=== PATIENT | female | born 1950 | race Two or more races ===

== ENCOUNTER 2016-05-10 10:13 | Emergency (ER) | payer MEDICARE ==
[2016-05-10] MEDS ORDERED: SODIUM CHLORIDE 0.9% 1,000 ML ONE (12:26)
[2016-05-10] MEDS ORDERED: ONDANSETRON 4 MG ODT TAB ONE (12:27)
[2016-05-10] MEDS ORDERED: HYDROCODONE/ACETAMINOPHEN 5/325MG TABLET ONE (12:27)
[2016-05-10 12:29] LABS: ABSOLUTE NEUTROPHIL COUNT 3.4 K/mm3 (1.8-7.7); BASO % 0.5 % (0.2-1.0); EOS # 0.1 (0.0-0.5); EOS % 1.8 % (0.9-2.9); HEMATOCRIT 30.2 % (37.0-47.0); HEMOGLOBIN 9.1 gm/l (12.0-16.0); IMM NEUT% 0.5 % (0-1); LYMPH # 1.7 (1.0-4.8); LYMPH % 29.8 % (15-45); MEAN CELL VOLUME 81.4 fl (81.0-99.0); MEAN CORPUSCULAR HEMOGLOBIN 24.5 pg (27.0-31.0); MEAN CORPUSCULAR HGB CONC 30.1 g/dl (33.0-37.0); MEAN PLATELET VOLUME 9.2 fl (7.4-10.4); MONO # 0.4 (0.0-0.8); MONO % 7.4 % (4-12); PLATELET COUNT 225 K/mm3 (130-400); RED CELL DISTRIBUTION WIDTH 18.8 % (11.5-14.5)
[2016-05-10 13:02] LABS: ALB/GLOB RATIO 1.3 (>1.0); ALBUMIN 3.1 gm/dL (3.5-5.7); CALCIUM 8.1 mg/dL (8.6-10.3)
--- NOTE | 2016-05-10 13:34 | RAD ---
LUMBAR SPINE ROUTINE 2 3 VWS HISTORY: Fall with back pain and hip pain. COMPARISONS: 08/01/2015. FINDINGS: AP and lateral views of the lumbar spine were performed demonstrating 5 lumbar-type vertebral bodies. The vertebral body height and alignment is grossly intact. Mild multilevel lumbar degenerative changes are present, similar to the appearance on prior exam. Posterior facet hypertrophy is also identified, particularly evident at L5-S1. The posterior elements are otherwise intact. Atherosclerotic calcification of the aorta is noted. IMPRESSION: 1. Multilevel lumbar degenerative changes with a similar appearance to that seen on prior examination. No significant compression deformity is visualized. 2. Posterior facet hypertrophy, particularly evident at L5-S1.
--- NOTE | 2016-05-10 13:35 | RAD ---
PELVIS W BILATL HIPS 3-5 VIEWS HISTORY: Fall with pain. COMPARISONS: None. FINDINGS: An AP view of the pelvis was performed with AP and frog-leg lateral views of both hips demonstrating intact osseous structures. The hip joint spaces are symmetric and are well-maintained. The osseous pelvis is appropriate. No focal soft tissue abnormalities are seen. IMPRESSION: 1. Negative views of the pelvis and bilateral hips.
[2016-05-10 15:33] LABS: SPECIFIC GRAVITY 1.015 (1.001-1.030); URINE BILIRUBIN NEGATIVE (NEGATIVE); URINE BLOOD TRACE (NEGATIVE); URINE GLUCOSE (UA) TRACE (NEGATIVE); URINE LEUKOCYTE ESTERASE NEGATIVE (NEGATIVE); URINE NITRITE NEGATIVE (NEGATIVE); URINE PROTEIN NEGATIVE (NEGATIVE); URINE UROBILINOGEN NORMAL (0-1 mg/dl)
[2016-05-10 15:36] LABS: URINE APPEARANCE CLEAR; URINE COLOR YELLOW
[2016-05-10 15:40] LABS: URINE BACTERIA RARE; URINE RBC 0-2 /hpf
== END 2016-05-10 16:04 | disposition home or self-care (01) ==
LOC: ED 10:13
DX: M53.3 Sacrococcygeal disorders, not elsewhere classified (principal); I10 Essential (primary) hypertension; F17.210 Nicotine dependence, cigarettes, uncomplicated; F03.90 Unspecified dementia, unspecified severity, without behavioral disturbance, psychotic disturbance, mood disturbance, and anxiety; Z86.73 Personal history of transient ischemic attack (TIA), and cerebral infarction without residual deficits; W07.XXXA Fall from chair, initial encounter; Y92.000 Kitchen of unspecified non-institutional (private) residence as the place of occurrence of the external cause
CPT/HCPCS: 85025; 80053; 81001; 72100; 73523; 99284; 51702; 99283; J7030; A9270 ×2

== ENCOUNTER 2016-05-23 09:04 | Emergency (ER) | payer MEDICARE ==
[2016-05-23 10:11] LABS: ABSOLUTE NEUTROPHIL COUNT 3.7 K/mm3 (1.8-7.7); BASO % 0.3 % (0.2-1.0); EOS # 0.1 (0.0-0.5); EOS % 2.4 % (0.9-2.9); HEMOGLOBIN 11.3 gm/l (12.0-16.0); IMM NEUT% 0.5 % (0-1); LYMPH # 1.4 (1.0-4.8); LYMPH % 24.6 % (15-45); MEAN CELL VOLUME 81.7 fl (81.0-99.0); MEAN CORPUSCULAR HEMOGLOBIN 24.9 pg (27.0-31.0); MEAN CORPUSCULAR HGB CONC 30.5 g/dl (33.0-37.0); MEAN PLATELET VOLUME 9.6 fl (7.4-10.4); MONO # 0.4 (0.0-0.8); NEUT % 65.2 % (43-75); PLATELET COUNT 189 K/mm3 (130-400); RED CELL DISTRIBUTION WIDTH 18.7 % (11.5-14.5)
[2016-05-23 10:16] LABS: ALB/GLOB RATIO 1.5 (>1.0); ALBUMIN 3.4 gm/dL (3.5-5.7); CALCIUM 8.7 mg/dL (8.6-10.3)
[2016-05-23 10:17] LABS: TROPONIN I < 0.01 ng/ml (0.0-0.06)
[2016-05-23 10:21] LABS: CKMB ISOENZYME 1.8 ng/ml (0.6-6.3)
--- NOTE | 2016-05-23 10:27 | CT ---
HEAD W/O CON COMPARISON: CT head 12/18/2015 HISTORY: Weakness and multiple falls. TECHNIQUE: Using a [employer] Aquilion [address] scanner, images were obtained through the head. An automated dose reduction technique was used to minimize patient radiation dose. DOSE INFORMATION: CTDIvol (mGy): 51.70 DLP(mGycm): 913.10 FINDINGS: Mass: None Intracranial Hemorrhage: None Acute Infarction: None Cerebral hemispheres: No change. Marked atrophy and low attenuation in the right matter. Basal ganglia: Normal Thalami: Normal Brainstem: Normal Cerebellum: Normal Ventricles: Ex vacuo enlargement. Basilar cisterns: Ex vacuo enlargement. Corpus callosum: Normal Pituitary fossa: Normal Middle ears and mastoid air cells: Normal Orbits and sinuses: Normal Skull and scalp: No acute finding. There are 2 joseph holes on the left. Dural sinuses and vessels: Normal IMPRESSION: No acute finding. Marked cerebral atrophy and chronic small vessel ischemic change of the cerebral white matter, with 2 joseph holes in the left side of the skull. The report was sent to the emergency department electronic medical record system 05/23/2016 at 10:28
[2016-05-23 10:58] LABS: SPECIFIC GRAVITY 1.025 (1.001-1.030); URINE APPEARANCE CLEAR; URINE BILIRUBIN NEGATIVE (NEGATIVE); URINE BLOOD NEGATIVE (NEGATIVE); URINE COLOR YELLOW; URINE GLUCOSE (UA) NEGATIVE (NEGATIVE); URINE LEUKOCYTE ESTERASE NEGATIVE (NEGATIVE); URINE NITRITE NEGATIVE (NEGATIVE); URINE PROTEIN NEGATIVE (NEGATIVE); URINE UROBILINOGEN NORMAL (0-1 mg/dl)
[2016-05-23] MEDS ORDERED: SODIUM CHLORIDE 0.9% 500 ML ONE (11:32)
== END 2016-05-23 12:07 | disposition home or self-care (01) ==
LOC: ED 09:04
DX: R53.1 Weakness (principal); I44.7 Left bundle-branch block, unspecified; R51 Headache; I10 Essential (primary) hypertension; F03.90 Unspecified dementia, unspecified severity, without behavioral disturbance, psychotic disturbance, mood disturbance, and anxiety; F17.210 Nicotine dependence, cigarettes, uncomplicated; Z86.73 Personal history of transient ischemic attack (TIA), and cerebral infarction without residual deficits
CPT/HCPCS: 83605; 83880; 85025; 82550; 82553; 80053; 80307; 81003; 84484; 36415 ×4; 70450; 99284 ×2; 51701; 93005; J7040

== ENCOUNTER 2016-06-27 09:57 | Day surgery (SDC) | payer MEDICARE ==
[~2016-06-27 09:57] MED LIST: LACTATED RINGERS 1,000 ML IV SCH; VANCOMYCIN HCL 500 MG in NS 0.9% (MINI-BAG PLUS) 100 ML IV ONE
[2016-06-27] MEDS ORDERED: LACTATED RINGERS 1,000 ML ONE (10:01)
[2016-06-27] MEDS ORDERED: IV START KIT ONE (10:01)
[2016-06-27] MEDS ORDERED: PUMP TUBING ONE (10:02)
[2016-06-27] MEDS ORDERED: PROPOFOL 40 ML IV ONE (10:14)
[2016-06-27 19:30] LABS: HELICOBACTER PYLORII DETECTION NEGATIVE (NEGATIVE)
--- NOTE | 2016-06-29 13:51 | SURGPATH ---
[facility] [address] [place] [id number] Patient Name: RUSS MOON MR#: [id number] : 1950 Gender: F Specimen #: [id number] Collected: 06/27/2016 Received: 06/28/2016 Reported: 06/29/2016 Submitting Phys: GEOVANNI ARREOLA Copy To Phys: [facility] Clinical History / Pre-Operative Diagnosis: Melena with decreased constipation, history of colon polyps, family history of colon cancer, rule out gastritis Specimen Source / Surgical Procedure Performed: #1 antral biopsy, #2 mid transverse colon polyps x2, #3 proximal transverse colon polyps x2, #4 proximal ascending colon polyp, #5 cecal polyp x4 Interpretation: 1. GASTRIC ANTRUM, BIOPSY: - GASTRIC MUCOSA SHOWING NO DIAGNOSTIC ABNORMALITIES. - NO MICROORGANISMS IDENTIFIED WITH ROUTINE STAINING. - NO EVIDENCE OF SIGNIFICANT INFLAMMATION, INTESTINAL METAPLASIA, OR MALIGNANCY. 2. COLON, MID TRANSVERSE, BIOPSY: - MULTIPLE FRAGMENTS OF TUBULAR ADENOMAS. - NO EVIDENCE OF MALIGNANCY. 3. COLON, PROXIMAL TRANSVERSE, BIOPSY: - TWO FRAGMENTS OF TUBULAR ADENOMAS. - NO EVIDENCE OF MALIGNANCY. 4. COLON, PROXIMAL ASCENDING, BIOPSY: - TWO FRAGMENTS OF TUBULAR ADENOMAS. - NO EVIDENCE OF MALIGNANCY. 5. CECUM, BIOPSY: - MULTIPLE FRAGMENTS OF TUBULAR ADENOMAS. - NO EVIDENCE OF MALIGNANCY. Electronically Signed Out Jim Marcum M.D., Ph.D. Gross Description: 1. The specimen is received in formalin labeled with the patient's name and "antrum". The specimen consists of two fragments of gerber soft tissue, 0.2-0.6 cm in greatest dimension. Submitted in toto in one cassette. 2. The specimen is received in formalin labeled with the patient's name and "mid transverse". The specimen consists of three fragments of brown soft tissue, 0.5-1 cm in greatest dimension. The larger pieces are bisected. Submitted entirely 3. The specimen is received in formalin labeled with the patient's name and "proximal transverse". The specimen consists of two fragments of gerber-brown soft tissue, 0.5-0.6 cm in greatest dimension. Submitted in toto in one cassette. 4. The specimen is received in formalin labeled with the patient's name and "proximal ascending colon polyp". The specimen consists of two fragments of gerber soft tissue, 0.6-0.8 cm in greatest dimension. The largest piece is bisected. Submitted entirely in one cassette. 5. The specimen is received in formalin labeled with the patient's name and "cecal polyp x4". The specimen consists of four fragments of gerber soft tissue, 0.5-1 cm in greatest dimension. The largest piece is bisected. Submitted entirely MAYE Joseph Microscopic Description: 1. Examination of multiple levels from the gastric antrum biopsy shows two fragments of histologically unremarkable gastric mucosa. The lamina propria is not expanded. No microorganisms are seen with routine staining. There is no evidence of significant inflammation, intestinal metaplasia, or malignancy. 2. Examination of multiple levels from the mid transverse colon biopsy shows multiple fragments of colonic mucosa with adenomatous changes within glands and tubules. There is no evidence of malignancy. 3. Examination of multiple levels from the proximal transverse colon biopsy shows two fragments of colonic mucosa with adenomatous changes within glands and tubules. There is no evidence of malignancy. 4. Examination of multiple levels from the proximal ascending colon biopsy shows two fragments of colonic mucosa with adenomatous changes within glands and tubules. There is no evidence of malignancy. 5. Examination of multiple levels from the cecum biopsy shows multiple fragments of colonic mucosa with adenomatous changes within glands and tubules. There is no evidence of malignancy. 1: 76248 2: 52067 3: 49039 4: 76036 5: [id number] D12.3 D12.2 D12.0
== END 2016-06-27 13:03 | disposition home or self-care (01) ==
LOC: SDC 09:57
PROVIDERS: ATTEND Internal Medicine Gastroenterology
PROC: 0DBH8ZX Excision of Cecum, Via Natural or Artificial Opening Endoscopic, Diagnostic (ICD-10-PCS; principal; 2016-06-27)
PROC: 0DBL8ZX Excision of Transverse Colon, Via Natural or Artificial Opening Endoscopic, Diagnostic (ICD-10-PCS; 2016-06-27)
PROC: 0DB68ZX Excision of Stomach, Via Natural or Artificial Opening Endoscopic, Diagnostic (ICD-10-PCS; 2016-06-27)
PROC: 0DBK7ZX Excision of Ascending Colon, Via Natural or Artificial Opening, Diagnostic (ICD-10-PCS; 2016-06-27)
DX: D12.3 Benign neoplasm of transverse colon (principal); D12.0 Benign neoplasm of cecum; D12.2 Benign neoplasm of ascending colon; K29.70 Gastritis, unspecified, without bleeding; K29.80 Duodenitis without bleeding; Z86.010 Personal history of colon polyps; Z80.0 Family history of malignant neoplasm of digestive organs; D64.9 Anemia, unspecified; I35.1 Nonrheumatic aortic (valve) insufficiency; I67.1 Cerebral aneurysm, nonruptured; F32.9 Major depressive disorder, single episode, unspecified; I10 Essential (primary) hypertension; E78.5 Hyperlipidemia, unspecified; G47.30 Sleep apnea, unspecified; F41.0 Panic disorder [episodic paroxysmal anxiety]; G43.909 Migraine, unspecified, not intractable, without status migrainosus; Z88.0 Allergy status to penicillin; Z88.5 Allergy status to narcotic agent; Z88.8 Allergy status to other drugs, medicaments and biological substances; Z79.82 Long term (current) use of aspirin
CPT/HCPCS: 45385; 43239; 87081; J3370; J7120